=== PATIENT | male | born 1995 | race Caucasian/White ===

== ENCOUNTER → 2025-02-12 | Emergency (ER) | payer OTHER ==
[~2025-02-12] VITALS: Ht 177.8 cm; Wt 91.0 kg
[2025-02-12 00:56] VITALS: BP 131/92; TEMP 36.8; O2SAT 100
[2025-02-12 01:00] VITALS: PULSE 120; RESP 18; O2SAT 98
== END ==
LOC: ER 00:48
DX: S51.831A Puncture wound without foreign body of right forearm, initial encounter (principal); Z53.21 Procedure and treatment not carried out due to patient leaving prior to being seen by health care provider; X58.XXXA Exposure to other specified factors, initial encounter; Y93.89 Activity, other specified; Y92.89 Other specified places as the place of occurrence of the external cause; Y99.8 Other external cause status
CPT/HCPCS: 73090